=== PATIENT | female | born 1965 | race Two or more races ===

== ENCOUNTER 2018-06-18 12:38 | Inpatient (IN) | payer MEDICARE, OTHER ==
--- NOTE | 2018-06-18 12:52 | PDOC ---
History of Present Illness - General Chief Complaint: Blood Sugar Problem Stated Complaint: DIFFICULTY WITH SPEAK Time Seen by Provider: 06/18/18 12:52 History Source: Patient Exam Limitations: No Limitations - History of Present Illness Initial Comments: 06/18/18 13:34 This is a 52 year old female with a history of TIA, CAD s/p stent, HTN , DM type I, on insulin pump, who was BIBA due to slurred speech, left arm and leg weakness and a low blood sugar reading at home. Patient states that she woke up at 6 am this morning, unable to get out of bed due to severe lethargy. Patient states that her blood sugar was 50, she ate candy and juice, although still with slurred speech and left sided weakness. She has had multiple episodes of hypoglycemia in the past, and does not relate these symptoms to hypoglycemia. Upon arrival to the emergency room, patient blood sugar in the 300s. At this time, patient states that she still feels like she has slowed speech, decreased sensation of left side and has trouble with word finding, and continued left sided weakness. Denies n, v, tongue biting, LOC, chest pain, sob, abdominal pain. Patient currently dies not have a primary care physician. She also admits to intermittently taking her plavix. Smoke 6 cigarettes per day, PMH: CAD, HTN, DM type I, TIA PSH: cardiac stent Social: +tobacco, rare drinking NKDA 06/18/18 13:47 Past History - Past Medical History Allergies/Adverse Reactions: Allergies Allergy/AdvReac Type Severity Reaction Status Date / Time No Known Allergies Allergy Verified 12/30/13 08:39 Review of Systems - Review of Systems Able to Perform ROS?: Yes Is the patient limited Italian proficient: Yes Constitutional: No: Chills, Diaphoresis, Fever HEENTM: No: Eye Pain, Blurred Vision, Double Vision Respiratory: No: Cough, Shortness of Breath Cardiac (ROS): Yes: Lightheadedness. No: Chest Pain, Irregular Heart Rate, Palpitations ABD/GI: No: Abdominal Distended, Abd. Pain w/ defecation, Diarrhea : No: Burning, Dysuria, Discharge Musculoskeletal: Yes: Muscle Weakness Neurological: Yes: Numbness, Paresthesia (left face, arm, leg). No: Headache *Physical Exam - Physical Exam General Appearance: Yes: Appropriately Dressed HEENT: positive: Pharynx Normal. negative: Normal Voice (slowed speech), Nasal Congestion, Rhinorrhea Neck: negative: Decreased range of motion Respiratory/Chest: positive: Decreased Breath Sounds. negative: Crackles, Wheezing Cardiovascular: positive: Regular Rate, S1, S2 Vascular Pulses: Carotid (R): 2+, Carotid (L): 2+, Dorsalis-Pedis (R): 2+, Doralis-Pedis (L): 2+ Gastrointestinal/Abdominal: positive: Normal Bowel Sounds, Soft. negative: Tender Musculoskeletal: negative: CVA Tenderness Extremity: positive: Tender (bilateral leg tenderness), Calf Tenderness ( bilateral ). negative: Cyanosis, Pedal Edema, Erythema Integumentary: positive: Warm Neurologic: positive: orchardist II-XII NML intact, Fully Oriented, Normal Mood/Affect , Sensory Deficit (left face; arm; leg; with decreased sensation; normal on the right), Finger to Nose, Other (slowed speech; dysarthria; NIH 4). negative: Motor Strength 5/5 (left arm weaknes; patent chemist strength 3/5 left; 5/5 on right; left leg weakness; 3/5; right 5/5), Facial Droop, Numbness, Confused, Disoriented Deep Tendon Reflexes: Ankle (L): 2+, Ankle (R): 2+, Knee (L): 2+, Knee (R): 2+, Bicep (L): 2+, Bicep (R): 2+, Tricep (L): 2+, Tricep (R): 2+ ED Treatment Course - LABORATORY CBC & Chemistry Diagram: 06/18/18 14:20 06/18/18 14:20 Medical Decision Making - Medical Decision Making 06/18/18 14:31 This is a 52 year old female with a history of TIA, CAD, just recently started her prescribed plavix, daily smoker, DM type 1 on insulin pump, presenting with slurred speech, left arm, leg weakness with decreased sensation on affected side. Sh was hypoglycemic at home, although not on admission. Will rule acute intracranial pathology,including hemorrhage, CVA. #CVA/TIA; activate stroke protocol -NIH 4; last known well 12 am -stat head CT; negative for acute findings -stat asa 324 chew -bedside swallow; 3oz water; passed -neurology contacted; spoke with Dr. Negron who suggest head CTA; -patient consents to contrast -head CTA as per neurology; negative -Brain MRI ordered; carotid dapples ordered -Dr. Martinez accepts for admission -continue stroke protocol with primary 06/18/18 15:04 *DC/Admit/Observation/Transfer Diagnosis at time of Disposition: CVA (cerebral vascular accident) - Discharge Dispostion Condition at time of disposition: Fair Decision to Admit order: Yes - Referrals Referrals: Sabino Barragan [Primary Care Provider] - Rupal Martinez MD [Staff Physician] - - Patient Instructions - Post Discharge Activity
[2018-06-18 13:44] VITALS: BMI 19.2
[2018-06-18] MEDS ORDERED: ASPIRIN 81 MG CHEWABLE TABLETS PO ONE (13:49)
[2018-06-18] MEDS ORDERED: INSULIN REGULAR HUMAN 100 UNITS/ML *VIAL IVPUSH ONE ×2 (13:51→15:58)
[2018-06-18] MEDS ORDERED: ASPIRIN 325 MG TABLET ONE (14:12)
--- NOTE | 2018-06-18 14:17 | PDOC ---
Attending Attestation - Resident Resident Name: HallieisabelledoraNanette - ED Attending Attestation I have performed the following: I have examined & evaluated the patient, The case was reviewed & discussed with the resident, I agree w/resident's findings & plan, Exceptions are as noted - Physicial Exam PE: 06/18/18 15:29 NEURO: CN II - XII intact except decreased sensation of left side of face. Mild dysarthria. No dysmetria. Left sided pronator drift noted. Subjective decreased sensation in LUE, LLE, left face Mildly diminished strength LUE and LLE. - Medical Decision Making 06/18/18 15:24 A portion of this note was documented by scribe services under my direction. I have reviewed the details of the note, within reason, and agree with the documentation with the following case summary and management plan written by me. Patient treated in the ED. Nursing notes are reviewed and incorporated into the medical decision-making. Vital signs reviewed. Peripheral IV access obtained by the nurse, laboratory studies are drawn and sent, reviewed and interpreted by myself. Vital Signs Temp Pulse Resp BP Pulse Ox 97.5 F L 72 18 113/71 100 06/18/18 12:46 06/18/18 12:46 06/18/18 12:46 06/18/18 12:46 06/18/18 12:46 52-year-old female with history of type 1 diabetes on insulin pump, TIA, coronary disease status post stent presents with hypoglycemia and left-sided weakness. The patient reported that she went to bed last night in her usual state health and well at midnight. She woke up this morning and noted she had left arm, left leg and left face numbness. She had was endorsing some weakness in the left arm and left leg as well as dysarthria. She had checked her sugars and noted that it was 51. EMS was activated. She was given glucose but the symptoms persisted. She denies chest pain or shortness of breath. Patient was seen by us and noted to have findings concerning for stroke. The hypoglycemia could expect any symptoms, it has been some time after correction of the glucose that the patient have persistent symptoms. Head CT was reviewed. Neurology was consulted. We'll need to be admitted for further workup for stroke. 06/18/18 15:[address] demonstrates no acute findings. CTA of the head demonstrates hypoplastic right he wants segment with normal flow seen in the right A2 segment through an anterior creaking artery. Case discussed with neurologist, Dr. Camacho. Dr. Bermudez had spoken with Dr. Negron. Admit for CVA. <Noah Rodriguez - Last Filed: 06/18/18 15:29> - HPI HPI: 06/18/18 15:30 Patient is a 52 year old female with a significant past medical history of TIA, CAD s/p stent, HTN, DM type I, on insulin pump, who presents to the ED with complaints of slurred speech that began just prior to ED arrival. Patient reports waking up this morning at home at 6 am,stating she was initially unable to get out of bed due to increased lethargy. She reports experiencing checking her blood sugar levels this afternoon with her results showing it to be in the 50s prompting her to drink juice and eat candy. Patient reports experiencing slurred speech, as well as associated left arm, and left leg numbness and weakness as well as left face numbness. She reports experiencing multiple episodes of hypoglycemia in the past but states this did not feel similar. Patient's BGL found to be in the 300s at arrival to ED. Denies chest pain, Sob. Denies nausea, vomiting. Denies contact with sick individuals, out of state traveling. Denies any other symptoms. Allergies: None Social history: No smoking. No alcohol. No illicit drugs. Surgical history: None PMD: Dr. Barragan - Physicial Exam PE: 06/18/18 15:30 GENERAL: Awake, alert, and fully oriented, in no acute distress HEAD: No signs of trauma EYES: PERRLA, EOMI, sclera anicteric, conjunctiva clear ENT: Auricles normal inspection, hearing grossly normal, nares patent, oropharynx clear without exudates. Moist mucosa NECK: Normal ROM, supple, JVD, or masses LUNGS: Breath sounds equal, clear to auscultation bilaterally. No wheezes, and no crackles HEART: Regular rate and rhythm, normal S1 and S2, no murmurs, rubs or gallops ABDOMEN: Soft, nontender,. No guarding, no rebound. No masses EXTREMITIES: Normal range of motion, no edema. No clubbing or cyanosis. No cords, erythema, or tenderness SKIN: Warm, Dry, normal turgor, no rashes or lesions noted. <Abhishek Frederick - Last Filed: 06/18/18 15:30> NIH Stroke Scale - Last Known Well Date/Time & Onset Date Last Known Well: 06/17/18 Time Last Known Well: 11:55 - Initial Evaluation Level of consciousness: Alert Ask patient the month and their age: Answers both correctly Ask patient to open & close eyes; make fist and let go: Obeys both correctly Best gaze (horizontal eye movement): Normal Visual field testing: No visual field loss Facial paresis (Show teeth/raise eyebrows/close eyes tight): Normal symmetrical movement Motor Function: Left Arm: Drift Motor Function: Right Arm: Normal (extends arm 90 (or 45) degrees for 10 seconds without drift Motor Function: Left Leg: Normal (extends leg 30 degrees for 5 seconds without drift) Motor Function: Right Leg: Normal (extends leg 30 degrees for 5 seconds without drift) Limb Ataxia: No ataxia Sensory(Use pinprick test arms,legs,trunk,face/side to side): Mild to moderate decrease in sensation Best language (Describe picture, name items, read sentences): No Aphasia Dysarthria (read several words): Mild to moderate slurring of words Extinction and Inattention: No abnormality - Total Score NIH Stroke Scale Score: 3 <Noah Rodriguez - Last Filed: 06/18/18 15:29>
[2018-06-18] MEDS: SODIUM CHLORIDE 1,000 ML IV SCH (14:20)
[2018-06-18 14:24] LABS: BASO % 0.6 % (0-2.0); EOS % 0.3 % (0-4.5); HEMATOCRIT 41.6 % (32.4-45.2); HEMOGLOBIN 13.9 GM/dL (10.7-15.3); LYMPH % 10.1 % (8-40); MCH 32.8 pg (25.7-33.7); MCHC 33.5 g/dl (32.0-36.0); MEAN CELL VOLUME 97.9 fl (80-96); MEAN PLT VOLUME 10.5 fl (7.5-11.1); MONO % 5.9 % (3.8-10.2); NEUT % 83.1 % (42.8-82.8); PLATELET COUNT 209 K/MM3 (134-434); RBC 4.25 M/mm3 (3.60-5.2); RDW 14.4 % (11.6-15.6); WHITE BLOOD COUNT 5.5 K/mm3 (4.0-10.0)
[2018-06-18 14:41] LABS: INR 0.93 (0.83-1.09)
[2018-06-18 14:52] LABS: ALBUMIN 3.8 g/dl (3.4-5.0); ALK PHOS 133 U/L (45-117); ANION GAP 11 MMOL/L (8-16); BILIRUBIN,TOTAL 0.7 mg/dL (0.2-1); BLOOD UREA NITROGEN 17 mg/dL (7-18); CALCIUM 9.2 mg/dL (8.5-10.1); CHLORIDE 98 mmol/L (98-107); CHOLESTEROL 218 mg/dL (50-200); CO2 27 mmol/L (21-32); CREATININE 0.9 mg/dL (0.55-1.3); HDL CHOLESTEROL 92 mg/dL (40-60); POTASSIUM 4.7 mmol/L (3.5-5.1); SGOT/AST 27 U/L (15-37); SGPT/ALT 24 U/L (13-61); SODIUM 136 mmol/L (136-145); TOT PROT 7.5 g/dl (6.4-8.2); TRIGLYCERIDES 62 mg/dL (0-150)
[2018-06-18 14:59] LABS: GLUCOSE,RANDOM 469 mg/dL (74-106)
[2018-06-18] MEDS ORDERED: SODIUM CHLORIDE 0.9% 500 ML INFUS.BAG IV ONE (15:03)
[2018-06-18] MEDS ORDERED: INSULIN REGULAR HUMAN 100 UNITS/ML *VIAL ONE (16:23)
[2018-06-18] MEDS ORDERED: ACETAMINOPHEN 325 MG TABLET (FP) PO PRN (16:58)
[2018-06-18] MEDS: INSULIN SLIDING SCALE (NOVOLOG) 1 VIAL SQ SCH ×2 (17:46→21:35)
[2018-06-18] MEDS ORDERED: FLU VACCINE QUAD 60 MCG/0.5 ML (MDV 18-19) IM ONE (19:15)
[2018-06-18 22:38] LABS: URINE APPEARANCE CLEAR; URINE BILIRUBIN NEGATIVE (<2.0 mg/dL); URINE COLOR STRAW; URINE GLUCOSE (UA) 3+ (NEGATIVE); URINE KETONE TRACE (NEGATIVE); URINE LEUK ESTERASE NEGATIVE (NEGATIVE); URINE NITRITE NEGATIVE (NEGATIVE); URINE PROTEIN NEGATIVE (NEGATIVE); URINE UROBILINOGEN NEGATIVE mg/dL (0.2-1.0)
[2018-06-18 23:35] LABS: METHADONE, UR NEGATIVE ng/ml (CUTOFF=300); OPIATES, URI NEGATIVE ng/ml (CUTOFF=300); PHENCYCLIDINE,URINE NEGATIVE ng/ml (CUTOFF=25); URINE AMPHETAMINES NEGATIVE ng/ml (CUTOFF=500); URINE BARBITURATES NEGATIVE ng/ml (CUTOFF=200); URINE BENZODIAZEPINES NEGATIVE ng/ml (CUTOFF=200)
[2018-06-18 23:40] LABS: COCAINE, UR POSITIVE ng/ml (CUTOFF=300)
[2018-06-19] MEDS: INSULIN SLIDING SCALE (NOVOLOG) 1 VIAL SQ SCH ×4 (06:47→22:33)
--- NOTE | 2018-06-19 07:30 | PN ---
Progress Note, Physician - Current Medication List Current Medications: Active Medications Acetaminophen (Tylenol -) 650 mg PO Q6H PRN PRN Reason: FEVER Sodium Chloride (Normal Saline -) 1,000 mls @ 42 mls/hr IV [facility] Last Admin: 06/18/18 14:20 Dose: 42 mls/hr Insulin Aspart (Novolog Vial Sliding Scale -) 1 vial SQ [facility]; Protocol Last Admin: 06/19/18 06:47 Dose: 10 units - Objective Vital Signs: Vital Signs Temperature 97.6 F 06/19/18 05:34 Pulse Rate 71 06/19/18 05:34 Respiratory Rate 16 06/19/18 05:34 Blood Pressure 98/48 L 06/19/18 05:34 O2 Sat by Pulse Oximetry (%) 100 06/18/18 21:00 Labs: CBC, BMP 06/18/18 14:20 06/18/18 14:20 INR, PTT INR 0.93 (0.83-1.09) 06/18/18 14:20
--- NOTE | 2018-06-19 09:48 | CON.NEURO ---
Consult - History of Present Illness History of Present Illness: 52 year old female with a significant past medical history of TIA, CAD s/p stent , HTN, DM type I, on insulin pump, who presents to the ED with complaints of slurred speech that began just prior to ED arrival. Patient reports waking up this morning at home at 6 am,stating she was initially unable to get out of bed due to increased lethargy. She reports experiencing checking her blood sugar levels this afternoon with her results showing it to be in the 50s prompting her to drink juice and eat candy. Patient reports experiencing slurred speech, as well as associated left arm, and left leg numbness and weakness as well as left face numbness. She reports experiencing multiple episodes of hypoglycemia in the past but states this did not feel similar. Patient's BGL found to be in the 300s at arrival to ED. Denies chest pain, Sob. Denies nausea, vomiting. Denies contact with sick individuals, out of state traveling. Denies any other symptoms. she has difficulty managing her pump and is not seeing her ppa teacher anymore-her sugars frequently fluctuates. mild dizziness now. MRI IMPRESSION: No discrete infarct is identified. There is possible minimal to mild bilateral symmetric cerebellar atrophy. CTA IMPRESSION: Hypoplastic/aplastic right A1 segment with normal flow seen in the right A2 segment through an anterior communicating artery. Otherwise, no focal hemodynamically significant stenosis, major artery cutoff, aneurysm or vascular malformation is identified within the central intracranial arteries circulation. - Alcohol/Substance Use Hx Alcohol Use: No - Smoking History Smoking history: Current every day smoker Have you smoked in the past 12 months: Yes Aproximately how many cigarettes per day: 6 Home Medications - Allergies Allergies/Adverse Reactions: Allergies Allergy/AdvReac Type Severity Reaction Status Date / Time No Known Allergies Allergy Verified 12/30/13 08:39 - Home Medications Home Medications: Ambulatory Orders Clopidogrel Bisulfate [Plavix] 75 mg PO DAILY 06/18/18 Duloxetine HCl [Cymbalta] 30 mg PO DAILY 06/18/18 Levothyroxine [Synthroid -] 300 mcg PO DAILY 06/18/18 Physical Exam-Neuro Vital Signs: Vital Signs Temperature 97.6 F 06/19/18 05:34 Pulse Rate 71 06/19/18 05:34 Respiratory Rate 16 06/19/18 05:34 Blood Pressure 98/48 L 06/19/18 05:34 O2 Sat by Pulse Oximetry (%) 100 06/18/18 21:00 Labs: CBC, BMP 06/18/18 14:20 06/18/18 14:20 INR, PTT INR 0.93 (0.83-1.09) 06/18/18 14:20 Assessment/Plan 52 year old female with a significant past medical history of TIA, CAD s/p stent , HTN, DM type I, on insulin pump, who presents to the ED with complaints of slurred speech that began just prior to ED arrival. Patient reports waking up this morning at home at 6 am,stating she was initially unable to get out of bed due to increased lethargy. She reports experiencing checking her blood sugar levels this afternoon with her results showing it to be in the 50s prompting her to drink juice and eat candy. Patient reports experiencing slurred speech, as well as associated left arm, and left leg numbness and weakness as well as left face numbness. She reports experiencing multiple episodes of hypoglycemia in the past but states this did not feel similar. Patient's BGL found to be in the 300s at arrival to ED. she has difficulty managing her pump and is not seeing her ppa teacher anymore-her sugars frequently fluctuates. mild dizziness now. MRI IMPRESSION: No discrete infarct is identified. There is possible minimal to mild bilateral symmetric cerebellar atrophy. CTA IMPRESSION: Hypoplastic/aplastic right A1 segment with normal flow seen in the right A2 segment through an anterior communicating artery. Otherwise, no focal hemodynamically significant stenosis, major artery cutoff, aneurysm or vascular malformation is identified within the central intracranial arteries circulation. IMPRESSION : hypoglycemia , now MS has improved and at neurological baseline. MRI and CTA (-) Suggest her to be set up with endocrine and DM education jessica for managing her pump. FU a1c, TSH. vertigo is likely related to DM autonomic neuropathy/vestibulopathy. DR TRENT
[2018-06-19] MEDS ORDERED: MECLIZINE HCL 12.5 MG TABLET PO PRN (13:40)
--- NOTE | 2018-06-19 13:50 | EKG ---
Test Reason : Blood Pressure : / mmHG Vent. Rate : 084 BPM Atrial Rate : 084 BPM P-R Int : 146 ms QRS Dur : 072 ms QT Int : 386 ms P-R-T Axes : 077 063 064 degrees QTc Int : 456 ms NORMAL SINUS RHYTHM WITH SINUS ARRHYTHMIA NONSPECIFIC ST ABNORMALITY Confirmed by TESSA ALBERT MD ([id number]) on 06/19/2018 1:49:46 PM Referred By: Confirmed By:TESSA ALBERT MD
--- NOTE | 2018-06-19 14:07 | HP ---
Admitting History and Physical - Primary Care Physician PCP: Rupal Martinez - Admission Chief Complaint: DIZZINESS/HEADACHE LEG WEAKNESS History of Present Illness: 52 Y/O FEMALE WHO COMPLAINS OF HEADACHE WITH DIZZINESS, LEFT LEG PAIN AND WEAKNESS R/O CVA VS OTHER. PATIENT IS A DIABETIC WITH CAD S/P CARDIAC STENT WITH SLURRED SPEECH AT HOME. URINE TOXICOLOGY POSITIVE FOR COCAINE History Source: Patient - Past Medical History Cardiovascular: Yes: CAD Endocrine: Yes: Diabetes Mellitus - Smoking History Smoking history: Current every day smoker Have you smoked in the past 12 months: Yes Aproximately how many cigarettes per day: 6 - Alcohol/Substance Use Hx Alcohol Use: No Home Medications - Allergies Allergies/Adverse Reactions: Allergies Allergy/AdvReac Type Severity Reaction Status Date / Time No Known Allergies Allergy Verified 12/30/13 08:39 - Home Medications Home Medications: Ambulatory Orders Clopidogrel Bisulfate [Plavix] 75 mg PO DAILY 06/18/18 Duloxetine HCl [Cymbalta] 30 mg PO DAILY 06/18/18 Levothyroxine [Synthroid -] 300 mcg PO DAILY 06/18/18 Review of Systems - Review of Systems Constitutional: reports: Weakness Eyes: reports: No Symptoms HENT: reports: No Symptoms Neck: reports: No Symptoms Cardiovascular: reports: No Symptoms Respiratory: reports: No Symptoms Gastrointestinal: reports: No Symptoms Genitourinary: reports: No Symptoms Musculoskeletal: reports: Muscle Pain Integumentary: reports: No Symptoms Neurological: reports: Change in Speech, Confusion, Dizziness Endocrine: reports: No Symptoms Hematology/Lymphatic: reports: No Symptoms Psychiatric: reports: No Symptoms Physical Examination Vital Signs: Vital Signs Temperature 98.8 F 06/19/18 13:52 Pulse Rate 76 06/19/18 13:52 Respiratory Rate 18 06/19/18 13:52 Blood Pressure 103/60 06/19/18 13:52 O2 Sat by Pulse Oximetry (%) 100 06/19/18 10:00 Constitutional: Yes: Mild Distress Eyes: Yes: WNL HENT: Yes: WNL Neck: Yes: WNL Cardiovascular: Yes: WNL Respiratory: Yes: WNL Gastrointestinal: Yes: WNL Renal/: Yes: WNL Musculoskeletal: Yes: Muscle Pain, Muscle Weakness Extremities: Yes: WNL Edema: No Peripheral Pulses WNL: Yes Integumentary: Yes: WNL Wound/Incision: Yes: Clean/Dry Neurological: Yes: WNL ...Motor Strength: LLE Psychiatric: Yes: WNL Labs: CBC, BMP 06/18/18 14:20 06/18/18 14:20 Imaging - Results MRI: Report Reviewed Problem List - Problems (1) TIA (transient ischemic attack) Code(s): G45.9 - TRANSIENT CEREBRAL ISCHEMIC ATTACK, UNSPECIFIED (2) Cocaine abuse Code(s): F14.10 - COCAINE ABUSE, UNCOMPLICATED (3) Leg pain Code(s): M79.606 - PAIN IN LEG, UNSPECIFIED (4) Vertigo Code(s): R42 - DIZZINESS AND GIDDINESS (5) Headache Code(s): R51 - HEADACHE (6) DMII (diabetes mellitus, type 2) Code(s): E11.9 - TYPE 2 DIABETES MELLITUS WITHOUT COMPLICATIONS Assessment/Plan LABS REVIEWED NEUROLOGY EVAL MRI BRAIN LEFT LEG DOPPLER R/O DVT LIPIDS PANEL COCAINE ABUSE D/W PATIENT FOR 30 MINS ABOUT SUBSTANCE ABUSE AND NOT GETTING HERSELF INTO THESE ISSUES WITH HER LIFESTYLE AND COMORBID DISEASES. SHE AGREED AND WOULD TRY TO STOP ALL THOUGH SHE REPORTS THIS COCAINE USE IS NOT OFTEN AND MAYBE 1 X YEAR. I OFFERED HER TO SEEK HELP AND WILL GIVE HER A DETOX SUPPORT GROUP AN OUTPATIENT. CHECK A1C SSI DIABETIC DIET CARDIO EVAL
--- NOTE | 2018-06-19 14:55 | CONSULT ---
Consultation: CONSULT REQUEST: Nephrology Resident HISTORY OF PRESENT ILLNESS: 52yo F with h/o multiple TIA, CAD s/p stent, HTN, IDDM (insulin pump usage) who originally presented to the hospital with slurred speech that began earlier in her admission day. Pt's last known normal at the time of admission was 6am and she also endorsed being unable to get out of bed which she attributed to lethargy. She was also endorses hypoglycemia and labile sugars recently, however her symptoms were different from her usual hypoglycemia episodes. Of note, her UTox on admission was positive for cocaine. We were asked to medically evaluate her due to a history of chronic renal insufficiency in the outpatient setting. Currently she reports her symptoms have improved since admission. She denies any back pain and difficulties with urination including dysuria, polyuria, hematuria. Patient currently dies not have a primary care physician. She also admits to intermittently taking her plavix. Smoke 6 cigarettes per day, PMHx: CAD HTN IDDM TIA x2 prior Chronic renal insufficiency PSHx: Cardiac PCI (unknown material) SoHx: Tobacco: Admits to intermittent smoking periods; 08/14-08/12 ppd Alcohol: Social drinking Drugs: Denies; however Utox + for cocaine Allergies: NKDA REVIEW OF SYSTEMS: CONSTITUTIONAL: Absent: fever, chills, diaphoresis, generalized weakness, malaise, loss of appetite, weight change HEENT: Absent: rhinorrhea, nasal congestion, throat pain, throat swelling, difficulty swallowing, mouth swelling, ear pain, eye pain, visual changes CARDIOVASCULAR: Absent: chest pain, syncope, palpitations, irregular heart rate, lightheadedness , peripheral edema RESPIRATORY: Absent: cough, shortness of breath, dyspnea with exertion, orthopnea, wheezing, stridor, hemoptysis GASTROINTESTINAL: Absent: abdominal pain, abdominal distension, nausea, vomiting, diarrhea, constipation, melena, hematochezia GENITOURINARY: Absent: dysuria, frequency, urgency, hesitancy, hematuria, flank pain MUSCULOSKELETAL: Absent: back pain, neck pain SKIN: Absent: rash, itching, pallor ENDOCRINE: Absent: unexplained weight gain, unexplained weight loss, heat intolerance, cold intolerance NEUROLOGIC: Absent: headache, focal weakness or paresthesias, dizziness, unsteady gait, seizure, mental status changes, bladder or bowel incontinence PSYCHIATRIC: Absent: anxiety, depression, suicidal or homicidal ideation, hallucinations. PHYSICAL EXAMINATION Vital Signs - 24 hr 06/18/18 06/18/18 06/18/18 16:17 17:57 21:00 Temperature 98.2 F 98.4 F 98.4 F Pulse Rate 86 70 Pulse Rate [ 85 Apical] Respiratory 16 16 20 Rate Blood Pressure 124/70 102/76 Blood Pressure 98/52 L [Right] O2 Sat by Pulse 100 100 100 Oximetry (%) 06/19/18 06/19/18 06/19/18 02:00 05:34 10:00 Temperature 98.4 F 97.6 F 98.0 F Pulse Rate 83 71 73 Pulse Rate [ Apical] Respiratory 18 16 16 Rate Blood Pressure 114/57 L 98/48 L 112/61 Blood Pressure [Right] O2 Sat by Pulse 100 Oximetry (%) 06/19/18 13:52 Temperature 98.8 F Pulse Rate 76 Pulse Rate [ Apical] Respiratory 18 Rate Blood Pressure 103/60 Blood Pressure [Right] O2 Sat by Pulse Oximetry (%) GENERAL: NAD, awake, alert, and fully oriented, laying in bed HEENT: NC/AT, EOMI, JENAE, sclera anicteric, MMM NECK: No JVD LUNGS: CTA bilaterally. No wheezes, and no crackles. No accessory muscle use. HEART: RRR, normal S1 and S2 without murmur ABDOMEN: Soft, NT/ND, normoactive BS, no guarding. MUSCULOSKELETAL: No CVA tenderness. EXTREMITIES: 2+ DP pulses, warm, No peripheral edema. PSYCHIATRIC: Cooperative. Good eye contact. Appropriate mood and affect. SKIN: Warm, dry, no rashes or lesions noted. Laboratory Results - last 24 hr 06/18/18 06/18/18 06/18/18 14:00 14:20 15:42 POC Glucometer > 400 Random Glucose 469 H* Creatine Kinase Index 0.7 CK-MB (CK-2) 2.1 Urine Color Urine Appearance Urine pH Ur Specific [place] Urine Protein Urine Glucose (UA) Urine Ketones Urine Blood Urine Nitrite Urine Bilirubin Urine Urobilinogen Ur Leukocyte Esterase Opiates Screen Methadone Screen Barbiturate Screen Phencyclidine Screen Ur Amphetamines Screen MDMA (Ecstasy) Screen Benzodiazepines Screen Cocaine Screen U Marijuana (THC) Screen Blood Type A POSITIVE Antibody Screen 06/18/18 06/18/18 06/18/18 17:20 20:26 20:26 POC Glucometer 401 Random Glucose Creatine Kinase Index CK-MB (CK-2) Urine Color Straw Urine Appearance Clear Urine pH 6.0 Ur Specific [place] 1.038 H Urine Protein Negative Urine Glucose (UA) 3+ H Urine Ketones Trace H Urine Blood Negative Urine Nitrite Negative Urine Bilirubin Negative Urine Urobilinogen Negative Ur Leukocyte Esterase Negative Opiates Screen Negative Methadone Screen Negative Barbiturate Screen Negative Phencyclidine Screen Negative Ur Amphetamines Screen Negative MDMA (Ecstasy) Screen Negative Benzodiazepines Screen Negative Cocaine Screen Positive A* U Marijuana (THC) Screen Negative Blood Type Antibody Screen 06/18/18 06/18/18 06/19/18 20:40 21:34 01:25 POC Glucometer 391 239 Random Glucose Creatine Kinase Index CK-MB (CK-2) Urine Color Urine Appearance Urine pH Ur Specific [place] Urine Protein Urine Glucose (UA) Urine Ketones Urine Blood Urine Nitrite Urine Bilirubin Urine Urobilinogen Ur Leukocyte Esterase Opiates Screen Methadone Screen Barbiturate Screen Phencyclidine Screen Ur Amphetamines Screen MDMA (Ecstasy) Screen Benzodiazepines Screen Cocaine Screen U Marijuana (THC) Screen Blood Type A POSITIVE Antibody Screen Negative 06/19/18 06/19/18 05:31 10:25 POC Glucometer 399 276 Random Glucose Creatine Kinase Index CK-MB (CK-2) Urine Color Urine Appearance Urine pH Ur Specific [place] Urine Protein Urine Glucose (UA) Urine Ketones Urine Blood Urine Nitrite Urine Bilirubin Urine Urobilinogen Ur Leukocyte Esterase Opiates Screen Methadone Screen Barbiturate Screen Phencyclidine Screen Ur Amphetamines Screen MDMA (Ecstasy) Screen Benzodiazepines Screen Cocaine Screen U Marijuana (THC) Screen Blood Type Antibody Screen Active Medications Generic Name Dose Route Start Last Admin Trade Name Freq PRN Reason Stop Dose Admin Acetaminophen 650 mg 06/18/18 16:58 Tylenol - PO Q6H PRN FEVER Sodium Chloride 1,000 mls @ 42 mls/hr 06/18/18 13:45 06/18/18 14:20 Normal Saline - IV 42 mls/hr ASDIR NELY Administration Insulin Aspart 1 vial 06/18/18 16:30 06/19/18 11:51 Novolog Vial Sliding Scale - SQ 6 units ACHS NELY Administration Protocol Meclizine HCl 12.5 mg 06/19/18 13:40 Antivert - PO TID PRN VERTIGO ASSESSMENT/PLAN: Chronic renal insufficiency TIA r/o CVA Cocaine use IDDM CAD s/p PCI HTN --Stable kidney function labs --BUN/CR 17/0.9 --No proteinuria in UA --Monitor Cr --Rest of mgmt per primary team Dispo: Will monitor labs and see as needs arrive. Thank you for this consultative opportunity. Case discussed with Dr. Carla Montiel, DO - IM PGY-2 Visit type - Emergency Visit Emergency Visit: Yes ED Registration Date: 06/18/18 Care time: The patient presented to the Emergency Department on the above date and was hospitalized for further evaluation of their emergent condition. - New Patient This patient is new to me today: Yes Date on this admission: 06/19/18 - Critical Care Critical Care patient: No
--- NOTE | 2018-06-19 15:42 | PN ---
Teaching Attending Note Name of Resident: Wale Montiel (Nephrology) ATTENDING PHYSICIAN STATEMENT I saw and evaluated the patient. I reviewed the resident's note and discussed the case with the resident. I agree with the resident's findings and plan as documented. Renal Pt presented with altered mental status. She was found to have glucose in the urine. She has history of CKD per primary team. Pt denies dysuria or hematuria. pmhx htn dm ckd tia nkda Laboratory Tests 06/18/18 06/18/18 06/18/18 14:20 14:20 20:26 WBC 5.5 Hgb 13.9 Sodium 136 Potassium 4.7 Creatinine 0.9 Creat Clearance w eGFR > 60 Random Glucose 469 H* Creatine Kinase 298 H Ur Specific [place] 1.038 H Urine Glucose (UA) 3+ H Urine Ketones Trace H Urine Blood Negative Cocaine Screen 06/18/18 20:26 WBC Hgb Sodium Potassium Creatinine Creat Clearance w eGFR Random Glucose Creatine Kinase Ur Specific [place] Urine Glucose (UA) Urine Ketones Urine Blood Cocaine Screen Positive A* Current Medications Generic Name Dose Route Start Last Admin Trade Name Freq PRN Reason Stop Dose Admin Acetaminophen 650 mg 06/18/18 16:58 Tylenol - PO Q6H PRN FEVER Sodium Chloride 1,000 mls @ 42 mls/hr 06/18/18 13:45 06/18/18 14:20 Normal Saline - IV 42 mls/hr ASDIR NELY Administration Insulin Aspart 1 vial 06/18/18 16:30 06/19/18 11:51 Novolog Vial Sliding Scale - SQ 6 units ACHS NELY Administration Protocol Meclizine HCl 12.5 mg 06/19/18 13:40 Antivert - PO TID PRN VERTIGO cardio s1s2 pulm clear gi soft ext neg edema neuro awake and alert Impression 1. hypoglycemia 2. ckd 3. htn 4. dm 5. cocaine use 6. dehydration 7. hc tia Plan - agree with gentle hydration - urine sg was elevated, likely due to dehydration - monitor renal function, stable at this point - will follow PRN - recommend that she does not use cocaine
[2018-06-19] MEDS: SODIUM CHLORIDE 1,000 ML IV SCH (16:30)
--- NOTE | 2018-06-19 18:30 | CONSULT ---
Consult Consult Specialty:: endocrine Referred by:: dr.ammir fowler, Reason for Consultation:: iddm type 1 - History of Present Illness Chief Complaint: hypoglycemia History of Present Illness: 52-year-old female with history of type 1 diabetes on insulin pump, TIA, coronary disease status post stent presents with hypoglycemia and left-sided weakness. The patient reported that she went to bed then She woke up and noted she had left arm, left leg and left face numbness. She had checked her sugars and noted that it was 51. EMS was activated. She was given glucose but the symptoms persisted. She denies chest pain cough nausea or vomiting. - History Source History Provided By: Patient - Past Medical History Cardio/Vascular: Yes: CAD Endocrine: Yes: Diabetes Mellitus - Alcohol/Substance Use Hx Alcohol Use: No - Smoking History Smoking history: Current every day smoker Have you smoked in the past 12 months: Yes Aproximately how many cigarettes per day: 6 Home Medications - Allergies Allergies/Adverse Reactions: Allergies Allergy/AdvReac Type Severity Reaction Status Date / Time No Known Allergies Allergy Verified 12/30/13 08:39 - Home Medications Home Medications: Ambulatory Orders Clopidogrel Bisulfate [Plavix] 75 mg PO DAILY 06/18/18 Duloxetine HCl [Cymbalta] 30 mg PO DAILY 06/18/18 Levothyroxine [Synthroid -] 300 mcg PO DAILY 06/18/18 Review of Systems - Review of Systems Constitutional: reports: Weakness Eyes: reports: Blurred Vision HENT: reports: No Symptoms Neck: reports: No Symptoms Cardiovascular: reports: Shortness of Breath Respiratory: reports: Exercise Intolerance, SOB on Exertion Gastrointestinal: reports: Bloating, Constipation Genitourinary: reports: No Symptoms Breasts: reports: No Symptoms Reported Musculoskeletal: reports: Muscle Pain, Muscle Cramps Integumentary: reports: No Symptoms Neurological: reports: Weakness Endocrine: reports: Unexplained Weight Loss Physical Exam Vital Signs: Vital Signs Temperature 98.0 F 06/19/18 18:00 Pulse Rate 74 06/19/18 18:00 Respiratory Rate 18 06/19/18 18:00 Blood Pressure 110/65 06/19/18 18:00 O2 Sat by Pulse Oximetry (%) 100 06/19/18 10:00 Constitutional: Yes: Calm Eyes: Yes: EOM Intact HENT: Yes: Normocephalic Neck: Yes: Trachea Midline Cardiovascular: Yes: Regular Rate and Rhythm Respiratory: Yes: CTA Bilaterally Gastrointestinal: Yes: Normal Bowel Sounds ...Rectal Exam: Yes: Deferred Renal/: Yes: WNL Breast(s): Yes: WNL Musculoskeletal: Yes: WNL, Joint Swelling Extremities: Yes: WNL Edema: No Integumentary: Yes: Onychomycosis Neurological: Yes: Alert, Oriented, Tingling Labs: CBC, BMP 06/18/18 14:20 06/18/18 14:20 Problem List - Problems (1) Type 1 diabetes mellitus with diabetic peripheral angiopathy without gangrene Code(s): E10.51 - TYPE 1 DIABETES W DIABETIC PERIPHERAL ANGIOPATH W/O GANGRENE (2) CVA (cerebral vascular accident) Code(s): I63.9 - CEREBRAL INFARCTION, UNSPECIFIED (3) TIA (transient ischemic attack) Code(s): G45.9 - TRANSIENT CEREBRAL ISCHEMIC ATTACK, UNSPECIFIED (4) Vertigo Code(s): R42 - DIZZINESS AND GIDDINESS Assessment/Plan Current Active Problems type 1 dm,neuropathy CVA (cerebral vascular accident) (Acute) Cocaine abuse (Acute Headache (Acute) Leg pain (Acute) TIA (transient ischemic attack) (Acute) Vertigo (Acute) Abnormal Lab Results 06/18/18 06/18/18 06/19/18 20:26 20:26 16:15 Hemoglobin A1c % 10.2 H Ur Specific [place] 1.038 H Urine Glucose (UA) 3+ H Urine Ketones Trace H Cocaine Screen Positive A* Laboratory Results - last 24 hr 06/18/18 06/18/18 06/18/18 14:00 15:42 20:26 POC Glucometer > 400 Hemoglobin A1c % Urine Color Straw Urine Appearance Clear Urine pH 6.0 Ur Specific [place] 1.038 H Urine Protein Negative Urine Glucose (UA) 3+ H Urine Ketones Trace H Urine Blood Negative Urine Nitrite Negative Urine Bilirubin Negative Urine Urobilinogen Negative Ur Leukocyte Esterase Negative Opiates Screen Methadone Screen Barbiturate Screen Phencyclidine Screen Ur Amphetamines Screen MDMA (Ecstasy) Screen Benzodiazepines Screen Cocaine Screen U Marijuana (THC) Screen Blood Type A POSITIVE Antibody Screen 06/18/18 06/18/18 06/18/18 20:26 20:40 21:34 POC Glucometer 391 Hemoglobin A1c % Urine Color Urine Appearance Urine pH Ur Specific [place] Urine Protein Urine Glucose (UA) Urine Ketones Urine Blood Urine Nitrite Urine Bilirubin Urine Urobilinogen Ur Leukocyte Esterase Opiates Screen Negative Methadone Screen Negative Barbiturate Screen Negative Phencyclidine Screen Negative Ur Amphetamines Screen Negative MDMA (Ecstasy) Screen Negative Benzodiazepines Screen Negative Cocaine Screen Positive A* U Marijuana (THC) Screen Negative Blood Type A POSITIVE Antibody Screen Negative 06/19/18 06/19/18 06/19/18 01:25 05:31 10:25 POC Glucometer 239 399 276 Hemoglobin A1c % Urine Color Urine Appearance Urine pH Ur Specific [place] Urine Protein Urine Glucose (UA) Urine Ketones Urine Blood Urine Nitrite Urine Bilirubin Urine Urobilinogen Ur Leukocyte Esterase Opiates Screen Methadone Screen Barbiturate Screen Phencyclidine Screen Ur Amphetamines Screen MDMA (Ecstasy) Screen Benzodiazepines Screen Cocaine Screen U Marijuana (THC) Screen Blood Type Antibody Screen 06/19/18 06/19/18 16:15 16:27 POC Glucometer 367 Hemoglobin A1c % 10.2 H Urine Color Urine Appearance Urine pH Ur Specific [place] Urine Protein Urine Glucose (UA) Urine Ketones Urine Blood Urine Nitrite Urine Bilirubin Urine Urobilinogen Ur Leukocyte Esterase Opiates Screen Methadone Screen Barbiturate Screen Phencyclidine Screen Ur Amphetamines Screen MDMA (Ecstasy) Screen Benzodiazepines Screen Cocaine Screen U Marijuana (THC) Screen Blood Type Antibody Screen plan bgm qid novolog insulin levemir 7 units now then levemir 15 units am cgms sensor as outpatient
[2018-06-19] MEDS ORDERED: INSULIN (LEVEMIR) 100 UNITS/ML UNITS SQ ONE (18:40)
[2018-06-20 05:42] VITALS: BP 106/60; PULSE 77; TEMP 97.5
[2018-06-20] MEDS: INSULIN SLIDING SCALE (NOVOLOG) 1 VIAL SQ SCH (06:26)
[2018-06-20] MEDS ORDERED: INSULIN (LEVEMIR) 100 UNITS/ML UNITS SQ SCH (07:00)
--- NOTE | 2018-06-20 08:18 | PN ---
Progress Note, Physician - Current Medication List Current Medications: Active Medications Acetaminophen (Tylenol -) 650 mg PO Q6H PRN PRN Reason: FEVER Sodium Chloride (Normal Saline -) 1,000 mls @ 42 mls/hr IV ASDIR [facility] Last Admin: 06/19/18 16:30 Dose: Not Given Insulin Aspart (Novolog Vial Sliding Scale -) 1 vial SQ ACHS [facility]; Protocol Last Admin: 06/20/18 06:26 Dose: Not Given Insulin Detemir (Levemir Vial) 15 units SQ AM NELY Last Admin: 06/20/18 06:28 Dose: 15 units Meclizine HCl (Antivert -) 12.5 mg PO TID PRN PRN Reason: VERTIGO Last Admin: 06/19/18 16:23 Dose: 12.5 mg - Objective Vital Signs: Vital Signs Temperature 97.5 F L 06/20/18 05:41 Pulse Rate 77 06/20/18 05:41 Respiratory Rate 16 06/20/18 05:41 Blood Pressure 106/60 06/20/18 05:41 O2 Sat by Pulse Oximetry (%) 100 06/19/18 21:00 Labs: CBC, BMP 06/18/18 14:20 06/18/18 14:20 INR, PTT INR 0.93 (0.83-1.09) 06/18/18 14:20 Problem List - Problems (1) TIA (transient ischemic attack) Code(s): G45.9 - TRANSIENT CEREBRAL ISCHEMIC ATTACK, UNSPECIFIED (2) Cocaine abuse Code(s): F14.10 - COCAINE ABUSE, UNCOMPLICATED (3) Leg pain Code(s): M79.606 - PAIN IN LEG, UNSPECIFIED (4) Vertigo Code(s): R42 - DIZZINESS AND GIDDINESS (5) Headache Code(s): R51 - HEADACHE (6) DMII (diabetes mellitus, type 2) Code(s): E11.9 - TYPE 2 DIABETES MELLITUS WITHOUT COMPLICATIONS
--- NOTE | 2018-06-20 10:00 | DS ---
Physical Examination Vital Signs: Vital Signs Temperature 97.5 F L 06/20/18 05:41 Pulse Rate 77 06/20/18 05:41 Respiratory Rate 16 06/20/18 05:41 Blood Pressure 106/60 06/20/18 05:41 O2 Sat by Pulse Oximetry (%) 100 06/19/18 21:00 Constitutional: Yes: No Distress Eyes: Yes: WNL HENT: Yes: WNL Neck: Yes: WNL Cardiovascular: Yes: WNL Respiratory: Yes: WNL Gastrointestinal: Yes: WNL Renal/: Yes: WNL Musculoskeletal: Yes: WNL Extremities: Yes: WNL Edema: No Peripheral Pulses WNL: Yes Integumentary: Yes: WNL Wound/Incision: Yes: Clean/Dry Neurological: Yes: WNL ...Motor Strength: WNL Psychiatric: Yes: WNL Labs: CBC, BMP 06/18/18 14:20 06/18/18 14:20 Discharge Summary Reason For Visit: CVA Current Active Problems CVA (cerebral vascular accident) (Acute) Cocaine abuse (Acute) DMII (diabetes mellitus, type 2) (Acute) Headache (Acute) Leg pain (Acute) TIA (transient ischemic attack) (Acute) Type 1 diabetes mellitus with diabetic peripheral angiopathy without gangrene ( Acute) Vertigo (Acute) Procedures: Principal: MRI/CT Hospital Course: ADMITTED FOR TIA, RULE OUT CVA, PATIENT WAS POSITIVE FOR COCAINE USE IN URINE TOXICIOLOGY. NEURO AND CARDIO EVAL NO ACUTE CHANGES Condition: Fair - Instructions Diet, Activity, Other Instructions: SEE YOUR DR BARRAGAN IN 3-4 DAYS SMOKING CESSATION AND STOP ALL SUBSTANCE ABUSE DRUGS! DECLINE DETOX/REHAB, WILL TRY [facility] AT [facility] INFORMATION GIVEN Referrals: Sabino Barragan [Primary Care Provider] - Rupal Martinez MD [Staff Physician] - Disposition: HOME - Home Medications Comprehensive Discharge Medication List: Ambulatory Orders Clopidogrel Bisulfate [Plavix] 75 mg PO DAILY 06/18/18 Duloxetine HCl [Cymbalta] 30 mg PO DAILY 06/18/18 Levothyroxine [Synthroid -] 300 mcg PO DAILY 06/18/18
== END 2018-06-20 10:40 | disposition home or self-care (01) | DRG 69 ==
LOC: JER 12:38 → JERBED 15:08 → J4S 17:22
PROVIDERS: ADMIT Family Medicine; ATTEND Family Medicine
DX: G45.9 Transient cerebral ischemic attack, unspecified (principal); I25.10 Atherosclerotic heart disease of native coronary artery without angina pectoris; Z95.5 Presence of coronary angioplasty implant and graft; I10 Essential (primary) hypertension; E10.649 Type 1 diabetes mellitus with hypoglycemia without coma; E10.43 Type 1 diabetes mellitus with diabetic autonomic (poly)neuropathy; F14.10 Cocaine abuse, uncomplicated; E86.0 Dehydration; R29.703 NIHSS score 3; F17.210 Nicotine dependence, cigarettes, uncomplicated; R51 Headache; R42 Dizziness and giddiness; M79.606 Pain in leg, unspecified; I12.9 Hypertensive chronic kidney disease with stage 1 through stage 4 chronic kidney disease, or unspecified chronic kidney disease; E10.22 Type 1 diabetes mellitus with diabetic chronic kidney disease; N18.9 Chronic kidney disease, unspecified
CPT/HCPCS: 36415; 70450-TC; 70496-TC; 70551-TC; 71045-TC-FY; 80053; 80307; 81003; 82465; 82550; 82553; 82962; 83036; 83718; 83721; 84478; 84484; 85025; 85610; 86850; 86900; 86901; 90688; 93005; 93010; 93880-TC; 93971-TC; 97116-GP; 97162-GP; 99281-25; G0008; J7030